=== PATIENT | female | born 1930 | race Caucasian/White ===

== ENCOUNTER → 2016-09-25 | Outpatient (CLI) | payer MEDICARE, OTHER ==
[~2016-09-25] MED LIST: ALLOPURINOL300 MG PO; ASPIRIN 81M81 MG/TA2 PO; CALCIUM CITRAT200 M1 PO; CALCIUM CITRATE1 TA1 PO; CARDIZEM 30MG T30 MG PO; CARDIZEM120 MG PO; CATAPRES 0.1MG0.1 MG PO; COLACE 100100 MG/CAP PO; COMPLEXED POTAS99 MG PO; EPA FISH OIL1000 MG PO; FISH OIL1000 MG PO; FLOMAX 0.40.4 MG/CAP PO; GLUCOSAMINE/MSM1 TAB PO; HCTZ 25MG TAB25 MG PO; MACROBID 1100 MG/CAP PO; NORCO 325 MG-51 TAB PO; ONE DAILY1 TA1 PO; PREMARIN PO; PRILOSEC 20MG20 MG PO; PYRIDIUM 100MG100 MG PO; SYNTHROID0.075 MG PO; SYNTHROID0.075 MG/T PO; SYNTHROID0.1 MG/TAB PO; ZOCOR 20MG20 MG PO; ZOCOR40 MG PO; ZOFRAN 4MG T4 MG/TAB PO; [UNRECOGNIZED DRUG - OTHER] PO
== END ==
LOC: MC.RAD 14:15
DX: Z12.31 Encounter for screening mammogram for malignant neoplasm of breast (principal)

== ENCOUNTER 2017-05-26 08:11 | Day surgery (SDC) | payer MEDICARE, OTHER ==
[~2017-05-26] VITALS: Ht 155 cm; Wt 58.2 kg
[2017-05-26 09:10] LABS: MEAN CELL VOLUME 86 fl (80.0-100.0); MEAN CORPUSCULAR HEMOGLOBIN 29 pg (27.0-31.0); MEAN CORPUSCULAR HGB CONC 34 g/dl (33.0-37.0); MEAN PLATELET VOLUME 9.6 fl (7.4-10.4); PLATELET COUNT 266 K/mm3 (130-400); RED BLOOD COUNT 4.15 M/mm3 (4.10-5.30); WHITE BLOOD COUNT 5.5 K/mm3 (4.8-10.8)
[2017-05-26 09:16] LABS: HEMATOCRIT 35.6 % (37.0-47.0)
[2017-05-26 09:19] LABS: CALCIUM 9.3 mg/dL (8.4-10.2); CREATININE, serum 0.77 mg/dL (0.52-1.25); POTASSIUM 3.8 mmol/L (3.4-5.0)
[2017-05-26] MEDS ORDERED: ZOCOR 20MG20 MG PO (09:22)
[2017-05-26] MEDS ORDERED: CALCIUM CITRATE1 TA7 PO (09:23)
[2017-05-26] MEDS ORDERED: FLOVENT 110MCG7.9 GM IH (09:23)
[2017-05-26] MEDS ORDERED: MAGNESIUM250 M1 PO (09:24)
[2017-05-26] MEDS ORDERED: FOSAMAX 70MG TA70 MG PO (09:25)
[2017-05-26] MEDS ORDERED: THE MEDICINE S200 M2 PO (09:25)
[2017-05-26] MEDS ORDERED: COLACE 100100 MG/CAP PO (09:26)
[2017-05-26] MEDS ORDERED: HYZAAR 50-12.1 UDTAB PO (09:26)
[2017-05-26 09:45] VITALS: BP 161/61; PULSE 72; TEMP 98.1
[2017-05-26 09:55] VITALS: BP 174/65; PULSE 52
[2017-05-26 12:06] VITALS: BP 132/56; PULSE 60; TEMP 97.9
[2017-05-26 13:54] VITALS: BP 132/56; PULSE 60; TEMP 97.9
[2017-05-26 15:13] VITALS: BP 158/60; PULSE 59; TEMP 98
[2017-05-26 20:24] VITALS: BP 152/52; PULSE 60; TEMP 97.9
[2017-05-27 05:48] VITALS: BP 155/53; PULSE 60; TEMP 98
[2017-05-27 07:35] VITALS: BP 159/54; PULSE 61; TEMP 98.1
[2017-05-27 11:09] VITALS: BP 127/48; PULSE 60; TEMP 98.8
[2017-05-27] MEDS ORDERED: CLEOCIN HCL300 MG PO (11:36)
== END 2017-05-27 13:58 | disposition home or self-care (01) ==
LOC: COL.CAR 08:11 → MEDICAL 11:38 → COL.CAR 05-27 13:58
PROVIDERS: Internal Medicine Cardiovascular Disease
DX: I49.5 Sick sinus syndrome (principal); R00.1 Bradycardia, unspecified; K21.9 Gastro-esophageal reflux disease without esophagitis; E78.5 Hyperlipidemia, unspecified; I10 Essential (primary) hypertension; E03.9 Hypothyroidism, unspecified; G47.33 Obstructive sleep apnea (adult) (pediatric); Z88.0 Allergy status to penicillin; Z88.1 Allergy status to other antibiotic agents; Z85.9 Personal history of malignant neoplasm, unspecified; J45.909 Unspecified asthma, uncomplicated
CPT/HCPCS: OP; C1785; C1894; C1898; J2250; J3010; J3370; J7030; J7050; Q9967

== ENCOUNTER → 2017-08-04 | Outpatient (CLI) | payer MEDICARE, OTHER ==
[~2017-08-04] MED LIST changes: +CALCIUM CITRATE1 TA7 PO; +CLEOCIN HCL300 MG PO; +FLOVENT 110MCG7.9 GM IH; +FOSAMAX 70MG TA70 MG PO; +HYZAAR 50-12.1 UDTAB PO; +MAGNESIUM250 M1 PO; +THE MEDICINE S200 M2 PO
== END ==
LOC: BHSO 10:06
DX: F33.41 Major depressive disorder, recurrent, in partial remission (principal)
CPT/HCPCS: G0463

== ENCOUNTER → 2017-10-01 | Outpatient (CLI) | payer MEDICARE, OTHER | LOC: MC.RAD 10:35 | DX: Z12.31 Encounter for screening mammogram for malignant neoplasm of breast (principal) ==

== ENCOUNTER → 2017-10-30 | Outpatient (CLI) | payer BC | LOC: BHSO 15:06 | DX: F43.10 Post-traumatic stress disorder, unspecified (principal) | CPT/HCPCS: G0463 ==

== ENCOUNTER → 2017-12-17 | Outpatient (CLI) | payer BC | LOC: BHSO 13:32 | DX: F43.10 Post-traumatic stress disorder, unspecified (principal) | CPT/HCPCS: G0463 ==

== ENCOUNTER → 2018-08-07 | Outpatient (CLI) | payer BC | LOC: BHSO 11:29 | DX: F33.42 Major depressive disorder, recurrent, in full remission (principal) | CPT/HCPCS: G0463 ==

== ENCOUNTER → 2018-10-23 | Outpatient (CLI) | payer MEDICARE, OTHER ==
[~2018-10-23] MED LIST changes: +CARDIZEM CD 18180 MG PO; +DOXYCYCLINE 10100 MG; +FLOVENT 110MCG7.9 GM; +OMNICEF 300MG300 MG PO; +PROAIR HFA0.09 MG/AC IH; +SYNTHROID0.1 MG/TAB; +XARELTO15 MG PO; +ZOCOR 20MG20 MG; +ZYLOPRIM 300MG300 MG PO
== END ==
LOC: MC.RAD 11:43 → COL.RAD 11:43
DX: Z12.31 Encounter for screening mammogram for malignant neoplasm of breast (principal)

== ENCOUNTER 2018-12-01 09:00 | Outpatient (RCR) | payer MEDICARE, OTHER ==
[2018-11-23 16:24] VITALS: BP 151/43; PULSE 79; TEMP 98.6
[2018-11-24] VITALS (11 sets, daily range): BP systolic 146–160; BP diastolic 50–60; PULSE 58–71; TEMP 97.7–98.3
[2018-11-25 09:22] VITALS: BP 155/56; PULSE 85; TEMP 98
[2018-11-26 09:28] VITALS: BP 163/48; PULSE 80; TEMP 99.2
[2018-11-27 09:43] VITALS: BP 157/46; PULSE 65; TEMP 99.2
[~2018-12-01] VITALS: Ht 152.4 cm; Wt 61.1 kg
[~2018-12-01 09:00] MED LIST changes: +DEMADEX 20MG20 M1 PO; +K-TAB10 PO; +SYNTHROID0.088 MG/T PO; -SYNTHROID0.1 MG/TAB; +XARELTO20 MG PO
[2018-12-01 09:04] VITALS: BP 152/53; PULSE 81; TEMP 97.9
== END 2018-12-01 10:29 | disposition home or self-care (01) ==
LOC: EUO 09:00
DX: Z45.2 Encounter for adjustment and management of vascular access device (principal); D64.9 Anemia, unspecified; Z95.0 Presence of cardiac pacemaker
CPT/HCPCS: A4216; C1751; J0692; J7050; P9016

== ENCOUNTER 2019-01-03 08:00 | Outpatient (RCR) | payer MEDICARE, OTHER ==
[2018-12-21 12:59] LABS: MEAN CELL VOLUME 75 fl (80.0-100.0); MEAN CORPUSCULAR HGB CONC 30 g/dl (33.0-37.0); MEAN PLATELET VOLUME 9.5 fl (7.4-10.4); PLATELET COUNT 276 K/mm3 (130-400); RED BLOOD COUNT 3.88 M/mm3 (4.10-5.30); REDCELL DISTRIBUTION WIDTH-CV 19.1 % (11.5-14.5)
[2018-12-21 13:06] LABS: HEMATOCRIT 29.1 % (37.0-47.0); HEMOGLOBIN 8.7 g/dl (12.5-16.0); MEAN CORPUSCULAR HEMOGLOBIN 22 pg (27.0-31.0)
[2018-12-21 13:13] VITALS: BP 161/57; PULSE 77; TEMP 97.9
[2018-12-21 13:14] LABS: ALBUMIN 3.8 gm/dL (3.5-5.0); BILIRUBIN,TOTAL 0.3 mg/dL (0.0-1.0); CALCIUM 8.7 mg/dL (8.4-10.2); CREATININE, serum 0.98 (0.52-1.25); POTASSIUM 3.9 mmol/L (3.4-5.0); TOTAL PROTEIN 6.8 gm/dL (6.4-8.2)
[2018-12-22 09:23] VITALS: BP 141/56; PULSE 81; TEMP 97.8
[2018-12-23 09:38] VITALS: BP 153/36; PULSE 73; TEMP 97.9
[2018-12-24 08:09] VITALS: BP 154/55; PULSE 62; TEMP 98.2
[2018-12-25 09:02] VITALS: BP 142/61; PULSE 73; TEMP 98.9
[2018-12-26 08:54] VITALS: BP 173/59; PULSE 71; TEMP 97.7
[2018-12-27 09:16] VITALS: BP 157/60; PULSE 65; TEMP 98
[2018-12-28 09:00] VITALS: BP 143/42; PULSE 79; TEMP 97.8
--- NOTE | 2018-12-28 09:15 | NUR ---
PICC intact right upper arm. With sterile technique right upper arm PICC dressing change done with insertion site cleansed with ChloraPrep 1, chlorhexidine impregnated disc applied, skin prep, StatLock, and Tegaderm applied. No signs or symptoms of IV complications noted. No concerns voiced. Arm wrapped with Jimbo to protect catheter. Patient to continue with cares and express unit.
[2018-12-28 09:19] LABS: MEAN CELL VOLUME 74 fl (80.0-100.0); MEAN CORPUSCULAR HGB CONC 30 g/dl (33.0-37.0); PLATELET COUNT 266 K/mm3 (130-400); RED BLOOD COUNT 3.94 M/mm3 (4.10-5.30); REDCELL DISTRIBUTION WIDTH-CV 19.9 % (11.5-14.5)
[2018-12-28 09:29] LABS: ALBUMIN 3.9 gm/dL (3.5-5.0); BILIRUBIN,TOTAL 0.5 mg/dL (0.0-1.0); CALCIUM 8.9 mg/dL (8.4-10.2); CREATININE, serum 1.05 (0.52-1.25); POTASSIUM 3.9 mmol/L (3.4-5.0); TOTAL PROTEIN 7.2 gm/dL (6.4-8.2)
[2018-12-28 09:40] LABS: HEMATOCRIT 29.2 % (37.0-47.0); HEMOGLOBIN 8.8 g/dl (12.5-16.0); MEAN CORPUSCULAR HEMOGLOBIN 22 pg (27.0-31.0)
[2018-12-29 07:45] VITALS: BP 160/55; PULSE 75; TEMP 98
[~2019-01-03] VITALS: Ht 152.4 cm; Wt 60.7 kg
== END 2019-01-04 11:09 | disposition home or self-care (01) ==
LOC: EUO 08:00
PROVIDERS: Family Medicine
DX: Z45.2 Encounter for adjustment and management of vascular access device (principal)
CPT/HCPCS: C1751; J0692

== ENCOUNTER 2019-01-28 09:30 | Outpatient (RCR) | payer MEDICARE, OTHER ==
[2019-01-04 13:22] VITALS: BP 146/64; PULSE 76; TEMP 98.1
[2019-01-11 15:24] VITALS: BP 126/42; PULSE 66; TEMP 98
--- NOTE | 2019-01-18 10:15 | NUR ---
PICC intact right upper arm. With sterile technique right upper arm PICC dressing change done with insertion site cleansed with ChloraPrep 1, chlorhexidine impregnated disc applied, skin prep, StatLock, and Tegaderm applied. No signs or symptoms of IV complications noted. No concerns voiced. The plan is to leave her PICC in for approximately the next 2 to 4 weeks dependent upon appointment time with primary care physician.
[2019-01-18 10:27] VITALS: BP 139/44; PULSE 82; TEMP 98.2
--- NOTE | 2019-01-25 12:00 | NUR ---
Here for cares. PICC intact right upper arm with sterile dressing change done with insertion site cleansed with chloraprep x 1, chlorhexidine impregnated disk applied, skin prep, stat lock, and tegaderm applied. no signs or symptoms of IV complications noted. no concerns voiced. plan is for patient to return next week for cares. voiced understanding of instructions.
[2019-01-25 12:14] VITALS: BP 147/51; PULSE 81; TEMP 97.6
[~2019-01-28] VITALS: Ht 152.4 cm; Wt 59.3 kg
[~2019-01-28 09:30] MED LIST changes: +MULTIVITAMIN FO1 CAP PO
[2019-01-28 09:49] VITALS: BP 164/56; PULSE 62; TEMP 98.6
--- NOTE | 2019-01-28 09:52 | NUR ---
Pt discharged per ambulation with daughter.
== END 2019-01-28 12:42 | disposition home or self-care (01) ==
LOC: EUO 09:30
DX: N39.0 Urinary tract infection, site not specified (principal); Z95.828 Presence of other vascular implants and grafts

== ENCOUNTER → 2019-08-02 | Outpatient (CLI) | payer MEDICARE, OTHER | LOC: COL.RAD 10:24 | DX: N28.1 Cyst of kidney, acquired (principal); R31.29 Other microscopic hematuria ==

== ENCOUNTER 2021-01-30 08:42 | Emergency (ER) | payer MEDICARE, OTHER ==
[~2021-01-30] VITALS: Ht 152.4 cm; Wt 61.4 kg
[2021-01-30 09:20] LABS: BASO # 0.1 (0.0-0.2); BASO % 0.7 % (0.0-2.0); EOS # 0.1 (0.0-0.7); EOS % 1.6 % (0-4.0); GRAN # 4.7 (1.4-6.5); GRAN % 65.6 % (42.2-75.2); HEMATOCRIT 44.9 % (37.0-47.0); HEMOGLOBIN 14.6 g/dl (12.5-16.0); LYMPH # 1.7 (1.2-3.4); LYMPH % 23.9 % (20.0-51.0); MEAN CELL VOLUME 92 fl (80.0-100.0); MEAN CORPUSCULAR HEMOGLOBIN 30 pg (27.0-31.0); MEAN CORPUSCULAR HGB CONC 33 g/dl (33.0-37.0); MEAN PLATELET VOLUME 9.4 fl (7.4-10.4); MONO # 0.6 (0.1-0.6); MONO % 7.8 % (1.7-9.3); PLATELET COUNT 273 K/mm3 (130-400); REDCELL DISTRIBUTION WIDTH-CV 13.3 % (11.5-14.5)
[2021-01-30 09:25] LABS: ALANINE AMINOTRANSFERASE 26 U/L (4-34); ALBUMIN 4.9 gm/dL (3.5-5.0); ALKALINE PHOSPHATASE 96 U/L (50-136); ANION GAP 11 mmol/L (7-16); AST,SGOT 42 U/L (15-37); BILIRUBIN,TOTAL 0.4 mg/dL (0.0-1.0); BLOOD UREA NITROGEN 14 mg/dL (7-17); CALCIUM 9.9 mg/dL (8.4-10.2); CARBON DIOXIDE 25 mmol/L (22-30); CHLORIDE 104 mmol/L (98-107); CREATININE, serum 0.74 (0.52-1.25); GLUCOSE 119 mg/dL (74-106); POTASSIUM 4.6 mmol/L (3.4-5.0); SODIUM 140 mmol/L (137-145); TOTAL PROTEIN 8.9 gm/dL (6.4-8.2)
[2021-01-30 09:37] LABS: TROPONIN-I < 0.012 ng/mL (0.000-0.035)
[2021-01-30 13:55] VITALS: BP 160/78; PULSE 68
== END 2021-01-30 18:51 | disposition home or self-care (01) ==
LOC: COL.ER 08:42
PROVIDERS: Emergency Medicine
DX: R07.89 Other chest pain (principal); E78.5 Hyperlipidemia, unspecified; E03.9 Hypothyroidism, unspecified; I49.5 Sick sinus syndrome; Z95.0 Presence of cardiac pacemaker; Z79.899 Other long term (current) drug therapy; Z79.890 Hormone replacement therapy; Z79.01 Long term (current) use of anticoagulants
CPT/HCPCS: J1940